=== PATIENT | male | born 2000 | race Caucasian/White ===

== ENCOUNTER 2021-11-18 02:03 | Emergency (ER) | payer BC ==
[2021-11-18] MEDS ORDERED: Silver Sulfadiazine 50 GM TUBE ONE (02:18)
== END 2021-11-18 02:53 | disposition home or self-care (01) ==
LOC: CSHERS 02:03
DX: T21.32XA Burn of third degree of abdominal wall, initial encounter (principal); T22.312A Burn of third degree of left forearm, initial encounter; T22.311A Burn of third degree of right forearm, initial encounter; T21.35XA Burn of third degree of buttock, initial encounter; T31.0 Burns involving less than 10% of body surface; X03.3XXA Fall due to controlled fire, not in building or structure, initial encounter
CPT/HCPCS: 16025